=== PATIENT | female | born 1935 | race Caucasian/White ===

== ENCOUNTER 2017-05-20 15:05 | Inpatient (IN) ==
[2017-05-20] MEDS ORDERED: cefTRIAXone 1,000 MG in SODIUM CHLORIDE 0.9% 100 ML IV STA (15:35)
[2017-05-20] MEDS ORDERED: ONDANSETRON 4 MG/2 ML VIAL IV STA (15:35)
[2017-05-20] MEDS ORDERED: AZITHROMYCIN INJ 500 MG in SODIUM CHLORIDE 0.9% 250 ML IV STA (15:35)
[2017-05-20] MEDS ORDERED: methylPREDNISolone SOD SUC 125 MG/2 ML VIAL IV STA (15:35)
[2017-05-20] MEDS ORDERED: PANTOPRAZOLE 40 MG VIAL IV STA (15:41)
[2017-05-20] MEDS ORDERED: methylPREDNISolone SOD SUC 125 MG/2 ML VIAL ONE (15:51)
[2017-05-20] MEDS ORDERED: ONDANSETRON 4 MG/2 ML VIAL ONE (15:51)
[2017-05-20] MEDS ORDERED: PANTOPRAZOLE 40 MG VIAL IV ONE (15:51)
[2017-05-20 15:58] LABS: Basophils % 0.3 % (0.0-0.8); Hemoglobin 8.8 GM/DL (12.0-16.0); Immature Granulocytes % 0.6 %; Immature Granulocytes Absolute 0.04 #; Lymphocytes # 0.8 10*3/uL (1.4-4.0); Mean Corpuscular HGB Conc 30.3 GM/DL (32-36); Mean Corpuscular Hemoglobin 22 PG (27-34); Mean Platelet Volume 11.9 FL (9.6-12.0); Monocytes # 0.1 10*3/uL (0.11-0.8); Monocytes % 0.7 % (1.7-12.7); Neutrophils # 5.8 10*3/uL (1.4-7.4); Neutrophils % 86.4 % (38.7-73.9); Platelet Count 166 T/CUMM (130-400); Red Blood Count 4.03 MC/CUMM (3.8-5.5); Red Cell Distribution Width 19.6 % (9.3-17.3); White Blood Count 6.8 T/CUMM (4-12)
[2017-05-20] MEDS ORDERED: ALBUTEROL 2.5 MG/3 ML NEB RESP TX SCH (16:00)
[2017-05-20 16:07] LABS: INR 0.9; Partial Thromboplastin Time 23.2 SECS (0-40)
[2017-05-20 16:12] LABS: Apearance,Urine CLEAR (Clear); Bilirubin,Urine Negative (Negative); Blood, Urine Negative (Negative); Glucose,Urine (UA) Negative (Negative); Ketones,Urine Negative (Negative); Nitrite,Urine Negative (Negative); Protein,Urine 30 MG/DL; RBC,Urine 1 /HPF (0-4); Urine Color Yellow (Yellow); Urine Specific Gravity 1.015 (1.001-1.035); Urine Urobilinogen < 2.0 EU/DL (0.2-1.0); WBC,Urine <1 /HPF (0-6)
[2017-05-20] MEDS ORDERED: cefTRIAXone 1,000 MG VIAL ONE (16:16)
[2017-05-20] MEDS ORDERED: SODIUM CHLORIDE 0.9% 100 ML IV ONE (16:17)
[2017-05-20 16:24] LABS: Alanine Aminotransferase 20 U/L (13-56); Albumin 3.9 G/DL (3.4-5.0); Alkaline Phosphatase 67 U/L (45-117); Aspartate Amino Transferase 21 U/L (0-37); Blood Urea Nitrogen 30 MG/DL (7-18); Calcium 9.7 MG/DL (8.5-10.1); Glucose 130 MG/DL (74-106); Osmolality,Calculated 286.4 MOS/KG (273-304); Potassium 3.8 MMOL/L (3.5-5.1); Sodium 140 MMOL/L (136-145); Total Protein 6.7 G/DL (6.4-8.3); Troponin I Only < 0.015 NG/ML (0.00-0.045)
[2017-05-20] MEDS ORDERED: FUROSEMIDE 40 MG/4 ML VIAL IV STA (17:04)
[2017-05-20] MEDS ORDERED: AZITHROMYCIN 500 MG VIAL IV ONE (17:07)
[2017-05-20] MEDS ORDERED: SODIUM CHLORIDE 0.9% 250 ML IV ONE (17:07)
[2017-05-20] MEDS ORDERED: FUROSEMIDE 40 MG/4 ML VIAL ONE (17:08)
[2017-05-20] MEDS ORDERED: ACETAMINOPHEN 325 MG TABLET PO PRN (18:21)
[2017-05-20] MEDS ORDERED: DOCUSATE SODIUM 100 MG CAPSULE PO PRN (18:21)
[2017-05-20] MEDS ORDERED: ONDANSETRON 4 MG/2 ML VIAL IV PRN (18:21)
[2017-05-20] MEDS ORDERED: ALBUTEROL 1.25 MG/3 ML NEB RESP TX PRN (18:44)
[2017-05-20] MEDS: ALBUTEROL 1.25 MG/3 ML NEB RESP TX SCH ×2 (19:20→23:21)
[2017-05-20] MEDS ORDERED: LEVOFLOXACIN INJ 500 MG in PREMIX 1 EACH IV ONE (20:00)
[2017-05-21 00:22] LABS: Elliptocytes 1+; Hypochromasia 1+; Microcytosis 1+
[2017-05-21 00:23] LABS: Giant Platelets Few; Platelet Estimate Normal; Target Cells Few
[2017-05-21 00:24] LABS: Schistocytes Few
[2017-05-21] MEDS: ALBUTEROL 1.25 MG/3 ML NEB RESP TX SCH ×6 (02:23→23:30)
[2017-05-21 02:53] LABS: Basophils % 0.2 % (0.0-0.8); Hematocrit 26.2 VOL% (35.7-47.0); Immature Granulocytes % 0.5 %; Immature Granulocytes Absolute 0.03 #; Lymphocytes # 0.8 10*3/uL (1.4-4.0); Lymphocytes % 13.2 % (21.3-54.2); Mean Corpuscular HGB Conc 30.5 GM/DL (32-36); Mean Corpuscular Hemoglobin 22 PG (27-34); Mean Corpuscular Volume 72.2 FL (87-102); Mean Platelet Volume 11.6 FL (9.6-12.0); Monocytes # 0.1 10*3/uL (0.11-0.8); Monocytes % 1.4 % (1.7-12.7); Neutrophils # 5.3 10*3/uL (1.4-7.4); Neutrophils % 84.7 % (38.7-73.9); Platelet Count 140 T/CUMM (130-400); Red Blood Count 3.63 MC/CUMM (3.8-5.5); Red Cell Distribution Width 19.9 % (9.3-17.3); White Blood Count 6.3 T/CUMM (4-12)
[2017-05-21] MEDS: methylPREDNISolone SOD SUC 40 MG/1 ML VIAL IV SCH ×2 (03:45→14:16)
[2017-05-21 04:27] LABS: Calcium 9.2 MG/DL (8.5-10.1); Osmolality,Calculated 287.3 MOS/KG (273-304); Potassium 3.4 MMOL/L (3.5-5.1)
[2017-05-21] MEDS ORDERED: POTASSIUM CHLORIDE RIDER 10 MEQ in PREMIX 1 EACH IV PRN (08:15)
[2017-05-21] MEDS ORDERED: traMADol 50 MG TABLET PO PRN (08:52)
[2017-05-21] MEDS ORDERED: PANTOPRAZOLE 40 MG TABLET PO SCH (09:00)
[2017-05-21] MEDS ORDERED: POLYETHYLENE GLYCOL POWDER 17 GM PACK PO SCH (09:00)
[2017-05-21] MEDS ORDERED: PANTOPRAZOLE 40 MG VIAL IV SCH (09:00)
[2017-05-21] MEDS: DILTIAZEM CD 120 MG CAPSULE PO SCH (09:37)
[2017-05-21] MEDS: POTASSIUM CHLORIDE 20 MEQ TABLET PO PRN ×3 (09:38→14:15)
[2017-05-21] MEDS: ASPIRIN EC 81 MG TABLET PO SCH (09:38)
[2017-05-21] MEDS: CITALOPRAM 20 MG TABLET PO SCH (09:38)
[2017-05-21] MEDS: POLYETHYLENE GLYCOL POWDER 17 GM PACK PO SCH (09:39)
[2017-05-21] MEDS: FUROSEMIDE 40 MG/4 ML VIAL IV SCH (09:39)
[2017-05-21] MEDS: PANTOPRAZOLE 40 MG TABLET PO SCH (09:44)
[2017-05-21] MEDS ORDERED: ROFLUMILAST 500 MCG TABLET PO SCH (10:00)
[2017-05-21] MEDS ORDERED: DIGOXIN 0.125 MG TABLET PO SCH (13:00)
[2017-05-21] MEDS ORDERED: LEVOFLOXACIN INJ 250 MG in PREMIX 1 EACH IV SCH (21:00)
[2017-05-21] MEDS ORDERED: PRAVASTATIN 20 MG TABLET PO SCH (21:00)
[2017-05-22] MEDS: methylPREDNISolone SOD SUC 40 MG/1 ML VIAL IV SCH (03:26)
[2017-05-22] MEDS: ALBUTEROL 1.25 MG/3 ML NEB RESP TX SCH ×3 (04:10→11:09)
[2017-05-22] MEDS: CITALOPRAM 20 MG TABLET PO SCH (10:04)
[2017-05-22] MEDS: ASPIRIN EC 81 MG TABLET PO SCH (10:04)
[2017-05-22] MEDS: DILTIAZEM CD 120 MG CAPSULE PO SCH (10:05)
[2017-05-22] MEDS: PANTOPRAZOLE 40 MG TABLET PO SCH (10:06)
[2017-05-22] MEDS: POLYETHYLENE GLYCOL POWDER 17 GM PACK PO SCH (10:06)
[2017-05-22] MEDS: FUROSEMIDE 40 MG/4 ML VIAL IV SCH (10:07)
[2017-05-22 11:56] VITALS: BP 140/76
== END 2017-05-22 12:05 | disposition home health service (06) | DRG 191 ==
LOC: N.ED 15:05 → N.EDINP 18:16 → N.2E 19:20
PROVIDERS: ADMIT Internal Medicine Geriatric Medicine; ATTEND Internal Medicine Geriatric Medicine

== ENCOUNTER 2017-10-25 06:02 | Observation (INO) ==
[2017-10-24 13:10] LABS: Basophils # 0.1 10*3/uL (0.0-0.2); Basophils % 0.7 % (0.0-0.8); Eosinophils # 0.1 10*3/uL (0.0-0.87); Eosinophils % 0.5 % (0.00-10.9); Hematocrit 35.9 VOL% (35.7-47.0); Hemoglobin 11.2 GM/DL (12.0-16.0); Immature Granulocytes % 0.4 %; Immature Granulocytes Absolute 0.04 #; Lymphocytes # 3.8 10*3/uL (1.4-4.0); Lymphocytes % 37.3 % (21.3-54.2); Mean Corpuscular HGB Conc 31.2 GM/DL (32-36); Mean Corpuscular Hemoglobin 25 PG (27-34); Mean Corpuscular Volume 78.9 FL (87-102); Mean Platelet Volume 11.2 FL (9.6-12.0); Monocytes # 0.9 10*3/uL (0.11-0.8); Monocytes % 8.7 % (1.7-12.7); Neutrophils # 5.3 10*3/uL (1.4-7.4); Neutrophils % 52.4 % (38.7-73.9); Platelet Count 185 T/CUMM (130-400); Red Blood Count 4.55 MC/CUMM (3.8-5.5); Red Cell Distribution Width 14.7 % (9.3-17.3); White Blood Count 10.2 T/CUMM (4-12)
[2017-10-24 13:48] LABS: Albumin 3.6 G/DL (3.4-5.0); Bilirubin,Total 0.4 MG/DL (0.2-1.0); Calcium 9.7 MG/DL (8.5-10.1); Osmolality,Calculated 280.5 MOS/KG (273-304); Potassium 3.8 MMOL/L (3.5-5.1); Total Protein 7.3 G/DL (6.4-8.3)
[~2017-10-25 06:02] MED LIST: ceFAZolin 1,000 MG in SYRINGE 1 EACH IV ONE
[2017-10-25] MEDS ORDERED: BUPIVACAINE 0.25% /EPI 10 ML VIAL ONE (07:44)
[2017-10-25] MEDS ORDERED: LIDOCAINE 1%/EPI INJ 20 ML VIAL ONE (07:45)
[2017-10-25] MEDS ORDERED: ceFAZolin 1,000 MG VIAL ONE (08:10)
[2017-10-25] MEDS ORDERED: BUPIVACAINE SPINAL 0.75% 2 ML AMP SPINAL ONE (08:46)
[2017-10-25] MEDS ORDERED: LACTATED RINGERS 1,000 ML IV SCH (09:00)
[2017-10-25] MEDS ORDERED: TISSUE ADHESIVE 1 EACH APPLICATOR TOP ONE (09:25)
[2017-10-25] MEDS ORDERED: HYDROmorphone 2 MG/1 ML VIAL IV PRN (11:01)
[2017-10-25] MEDS ORDERED: ALBUTEROL/IPRATROPIUM 3 ML NEB RESP TX PRN (11:01)
[2017-10-25] MEDS ORDERED: PROMETHAZINE 25 MG/1 ML VIAL IM PRN (11:01)
[2017-10-25] MEDS ORDERED: ONDANSETRON 4 MG/2 ML VIAL IV PRN (11:01)
[2017-10-25] MEDS ORDERED: ONDANSETRON 4 MG/2 ML VIAL ONE (11:09)
[2017-10-25] MEDS ORDERED: HYDROCORTISONE 100 MG VIAL ONE (11:09)
[2017-10-25] MEDS ORDERED: PROPOFOL 200 MG/20 ML VIAL IV ONE (11:09)
[2017-10-25] MEDS ORDERED: MIDAZOLAM 2 MG/2 ML VIAL ONE (11:09)
[2017-10-25] MEDS ORDERED: SODIUM CHLORIDE 0.9% 100 ML IV ONE (11:10)
[2017-10-25] MEDS: LACTATED RINGERS 1,000 ML IV SCH (11:43)
[2017-10-25] MEDS ORDERED: IPRATROPIUM/ALBUTEROL INHALER INH SCH (13:00)
[2017-10-25] MEDS: ALBUTEROL/IPRATROPIUM 3 ML NEB RESP TX SCH ×2 (14:07→18:44)
[2017-10-25] MEDS ORDERED: PRAVASTATIN 20 MG TABLET PO SCH (21:00)
[2017-10-25] MEDS ORDERED: FLUTICASONE/SALMETEROL 250-50 DISKUS 14 DOSE INH SCH (21:00)
[2017-10-25] MEDS ORDERED: ENOXAPARIN 40 MG/0.4 ML SYRINGE SUBCUT SCH (21:00)
[2017-10-25] MEDS: POTASSIUM CHLORIDE 10 MEQ TABLET PO SCH (21:14)
[2017-10-26] MEDS: ALBUTEROL/IPRATROPIUM 3 ML NEB RESP TX SCH ×2 (01:51→06:50)
[2017-10-26] MEDS: LACTATED RINGERS 1,000 ML IV SCH (06:48)
[2017-10-26 07:13] VITALS: BP 132/76
[2017-10-26] MEDS: POTASSIUM CHLORIDE 10 MEQ TABLET PO SCH (08:50)
[2017-10-26] MEDS ORDERED: ASPIRIN EC 81 MG TABLET PO SCH (09:00)
[2017-10-26] MEDS ORDERED: DIGOXIN 0.125 MG TABLET PO SCH (09:00)
[2017-10-26] MEDS ORDERED: OXYBUTYNIN XL 15 MG TABLET PO SCH (09:00)
[2017-10-26] MEDS ORDERED: DILTIAZEM CD 120 MG CAPSULE PO SCH (09:00)
[2017-10-26] MEDS ORDERED: LISINOPRIL 20 MG TABLET PO SCH (09:00)
[2017-10-26] MEDS ORDERED: CALCIUM (CARBONATE)/VITAMIN D 600 MG-400 UNIT TABLET PO SCH (09:00)
[2017-10-26] MEDS ORDERED: MULTIVITAMIN (CENTRUM) TABLET PO SCH (09:00)
[2017-10-26] MEDS ORDERED: CITALOPRAM 20 MG TABLET PO SCH (09:00)
[2017-10-26] MEDS ORDERED: PANTOPRAZOLE 40 MG TABLET PO SCH (09:00)
[2017-10-26] MEDS ORDERED: IPRATROPIUM 500 MCG/2.5 ML NEB RESP TX SCH (09:00)
== END 2017-10-26 10:48 | disposition home or self-care (01) ==
LOC: N.OR 06:02 → N.3E 06:02 → N.SDSINP 06:03 → N.3E 09:34
PROVIDERS: ADMIT Surgery; ATTEND Surgery